=== PATIENT | female | born 1980 | race Caucasian/White ===

== ENCOUNTER → 2021-10-20 14:10 | Outpatient (CLI) | payer BC, SELFPAY ==
--- NOTE | ~2021-10-20 | XR_ITS ---
EXAM: XR knee LT 2V DATE: 10/20/2021 14:28 HISTORY: NO INJURY LEFT KNEE PAIN ALL OVER FOR 1 WEEK . COMPARISON: None available. FINDINGS: Normal mineralization. No fracture or dislocation. No lytic or blastic lesion. Mild medial joint space narrowing. Mild patellar osteophytosis. Subchondral lucency in the posterior patella. No erosion or periosteal change. Soft tissues within normal limits. Small left knee joint effusion. IMPRESSION: Mild osteoarthrosis of the knee. 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 Reviewed, dictated and finalized at location K.
== END ==
PROVIDERS: PCP Family Medicine Adolescent Medicine; Visit Provider Physician Assistant
DX: M17.12 Unilateral primary osteoarthritis, left knee (principal)
CPT/HCPCS: 73560

== ENCOUNTER → 2021-12-07 15:49 | Outpatient (CLI) | payer BC, SELFPAY ==
--- NOTE | ~2021-12-07 | MR_ITS ---
EXAMINATION: MR knee LT wo con DATE: 12/07/2021 16:50 INDICATION: Left knee pain TECHNIQUE: Magnetic resonance imaging (MRI) of the left knee was performed without intravenous contra st. Sequences included coronal PD-weighted FSE, coronal PD-weighted FS FSE, sagittal T2-weighted FSE , sagittal PD-weighted FS FSE and axial PD weighted fat saturated FSE. COMPARISON: None. FINDINGS: Medial compartment: Medial meniscus is normal. Articular cartilage is normal. Lateral compartment: Lateral meniscus is normal. Articular cartilage is normal. Patellofemoral compartment: Chondral ulceration and fissuring at the medial and lateral patellar facets as well as the apical rid ge where there is underlying cortical irregularity and edema and cystlike subarticular changes. Addit ional deep chondral fissure without degenerative subchondral changes at the inferior aspect of the me dial trochlea. Ligaments and tendons: Anterior and posterior cruciate ligaments are normal. The medial collateral ligament and fibular harriett ateral ligament complex are normal. The extensor mechanism is normal. The visualized medial and later al hamstring tendons as well as the iliotibial band are normal. Fluid: Physiologic amount of fluid in the joint space. No loose osteochondral bodies identified. Osseous/other: Normal marrow signal. No fracture or pathologic marrow replacing process. IMPRESSION: 1. 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 Reviewed, dictated and finalized at location A.
== END ==
PROVIDERS: PCP Family Medicine Adolescent Medicine; Visit Provider Orthopaedic Surgery
DX: M17.12 Unilateral primary osteoarthritis, left knee (principal)
CPT/HCPCS: 73721

== ENCOUNTER → 2022-06-21 13:22 | Outpatient (CLI) | payer BC, SELFPAY ==
--- NOTE | ~2022-06-21 | MR_ITS ---
MRI of the right shoulder Technique: Axial proton-density fat-sat images, coronal proton density fat-sat and T2 fat-sat images, and sagittal T1-weighted and T2 fat-sat images were acquired. Clinical History: Rotator cuff tear Findings: There is minimal subacromial spur, but otherwise no significant degenerative change at the AC joint. Coracoclavicular, coracoacromial, and coracohumeral ligaments are intact. Supraspinatus and infraspinatus tendons are intact, without partial or full-thickness tear. Subscapul robbie tendon is intact. Tendon of long head of the biceps is intact. Glenoid labrum is intact, without evidence of tear. Inferior glenohumeral ligament is intact. No degenerative change or significant effusion of the gleno humeral joint. No fluid distention of the subacromial/subdeltoid bursa. No muscle atrophy or edema id entified. Impression: No significant abnormality identified. No rotator cuff tear. Reviewed, dictated and finalized at [facility]. Impression: No significant abnormality identified. No rotator cuff tear.
== END ==
PROVIDERS: PCP Family Medicine Adolescent Medicine; Visit Provider Orthopaedic Surgery
DX: M75.101 Unspecified rotator cuff tear or rupture of right shoulder, not specified as traumatic (principal)
CPT/HCPCS: 73221

== ENCOUNTER 2023-01-11 01:27 | Day surgery (SDC) | payer BC, SELFPAY ==
[2023-01-02 11:45] VITALS: BMI 34.9
--- NOTE | 2023-01-02 11:53 | PC.NURSE ---
Report to the Outpatient Waiting Room, entrance under the green pavilion located off [facility], at time 0830 on date 01/11/23. Planned Procedure Time: 1030. Time changes happen often and if your time is changed the preop area will call you the afternoon before. - You and your visitor will be asked to self-screen and do not enter if you have any COVID symptoms. - A mask is optional within the hospital at this time. Patients may have clear liquids (water, carbonated beverages, clear teas, apple juice) until 3 hours prior to surgery with a maximum of 20 ounces. - No food from midnight until time of surgery Take the following medications with a SIP of water the morning of surgery: N/A DO NOT STOP ANY OF YOUR OTHER PRESCRIPTION MEDICATIONS PRIOR TO SURGERY ?EXCEPT THE FOLLOWING Medications to discontinue per physician: N/A Date to take last dose: N/A Please no make-up, nail indonesian, hairspray, perfume, deodorant, or body powder the day of surgery. No jewelry (including any body piercings) or valuables the day of surgery, leave them at home. Please take a shower or bath the night before, or the morning of, surgery with an antibacterial soap. Wear comfortable, loose fitting clothing. - Jewelry must be removed prior to entering the operating room. Rings and piercings that are not removed may be cut off. - The hospital will not accept responsibility for valuables. - Please leave all valuables, including medications, at home the day of surgery. If you are going home after surgery, a licensed wedding transportation driver must drive you home. - NO public transportation without another adult if you receive anesthesia. - We recommend that an adult stay with you for 24 hours following discharge. - We also recommend that you do not drive, make important decision, drink alcoholic beverages, or take any drugs that were not prescribed by your health care provider for at least 24 hours after your discharge time. Follow any additional instructions given to you from your surgeon. If you or anyone in your household have experienced Covid symptoms in the past week, please notify your surgeon or the nurse liaison at the phone number below for possible testing. Telephone instructions given to PT - GABRIELA VILLA and asked if any additional questions and then verbalized understanding. Patient advised to call surgeon office or pre surgery nurse liaison [phone] if any additional questions.
--- NOTE | 2023-01-10 15:57 | WPDANESEPPF ---
Anes - Initial Pre Proc Eval Procedure: Operation Date: 01/11/23 07:30 Proposed Procedures p Left Knee Arthroscopy, Possible Lateral Release, Proceed As Indicated - Hasmukh Guthrie MD Date/Time: 01/10/23 15:57 Surgeon: Hasmukh Guthrie MD Pre Op Diagnosis: left knee chondromylasia Patient Data Age: 42 Gender: F Height: 1.7 m Weight: 101 kg Allergies Allergy/AdvReac Type Severity Reaction Status Date / Time triazolam [From Halcion] AdvReac Other Verified 01/11/23 06:23 Home Medications Medication Instructions Recorded Confirmed Type No Home Medications 01/10/23 01/10/23 History Patient hx anesthesia problems: none Family hx anesthesia problems: none Results Review: All pre-operative results and documents have been reviewed as part of the pre-operative evaluation. [facility] Past Medical History Medical History Right knee pain Surgical History Surgical History H/O arthroscopic knee surgery Right 2012, Left 2013 History of surgical procedure on eye proper using laser OD only by Dr. Patel Hx of cataract surgery bilateral, [address] Mejía Hx of detached retina repair 2020 Lens replaced [address] Mejía Social History Social History Smoking status: Never smoker Second hand tobacco smoke exposure: No Alcohol intake: never Alcohol use details: 1-2 per month Substance use: never Substance use type: does not use Lack of Transportation: No Lack of Food: Never True Current Housing: I Have Housing Concerned About Future Housing: No Difficulty Paying Gas/Electric Bills: No Difficulty Paying for Meds: No Currently Unemployed: No Education: Bachelor's Degree Living arrangements: with family Occupation/Education: student Gender identity (if verbalized by the patient): Female Spiritual care concerns: No Agree to blood products: Yes Anes - Eval Final PreProcedure Day of Procedure 01/10/23 15:57 Patient weight: obese Heart: regular rate and rhythm Lungs: clear to auscultation Airway: Mallampati scale class II Neurological: alert and oriented Last oral intake: >/= 8 hours ASA classification: II Emergent: no Anesthetic plan: proceed Anesthesia type and monitoring: general LMA and standard monitoring Results Review: All pre-operative results and documents have been reviewed as part of the pre-operative evaluation. Informed Consent: The patient's anesthetic plan and its attendant risks and benefits were discussed with the patient/family/POA. Questions were solicited and answers provided to the satisfaction of the patient/family/POA.
[2023-01-11] VITALS (9 sets, daily range): BP systolic 117–149; BP diastolic 65–86; PULSE 63–96; RESP 14–16; TEMP 36.4–37.1; O2SAT 97–100
[2023-01-11] MEDS: CELECOXIB 200 MG CAPSULE PO (06:35)
[2023-01-11] MEDS: ACETAMINOPHEN 500 MG TABLET 1000 MG PO (06:35)
[2023-01-11] MEDS: LACTATED RINGERS 1,000 ML 30 ML IV CONT ×3 (06:55→11:20)
--- NOTE | 2023-01-11 07:13 | WPDHPUPDATE1 ---
History and Physical Update Update Date/Time: 01/11/23 07:13 History and Physical has been reviewed, including an updated exam of the patient. There are NO changes in the patient's condition. Risks, benefits, and alternatives have been discussed and questions answered. Patient agrees to proceed with procedure.
[2023-01-11] MEDS: ceFAZolin 2 GM/D5W 50 ML 2 GM/50 ML BAG IVPB (08:05)
[2023-01-11] MEDS: BUPivacaine HCL 0.5% 10 ML AMP 30 ML INFILTRATE (08:06)
--- NOTE | 2023-01-11 09:20 | W.PM.PROC2 ---
Procedure Note - Detailed Date of Procedure 01/11/23 Pre-op Diagnosis left knee chondromylasia Post-op Diagnosis Same Procedure Performed LEFT KNEE SCOPE WITH CHONDROPLASTY, MAJOR SYNOVECTOMY AND LATERAL RETINACULAR RELEASE Surgeon Hasmukh Guthrie MD Anesthesia General Description of Procedure PATIENT WAS TAKEN TO THE OR. LEFT LEG WAS PREPPED AND DRAPED STERILE. TROCARS WERE PLACED IN THE USUAL FASHION. CAMERA WAS INTRODUCED. THERE WAS SEVERE CHONDROMALACIA TO THE PATELLA FEMORAL JOINT. THERE WAS A LOT OF SYNOVITIS IN ALL COMPARTMENTS. THE MEDIAL COMPARTMENT SHOWED CHONDROMALACIA TO THE MEDIAL FEMORAL CONDYLE AND A LARGE CHONDRAL DEFECT. A SHAVER WAS USED TO PREFORM A CHONDROPLASTY. THERE WAS NO MEDIAL MENISCUS TEAR. THE ACL WAS INTACT. THE LATERAL MENISCUS WAS NOT TORN. THE LATERAL COMPARTMENT HAD MINIMAL CHONDROMALACIA. CHONDROPLASTY WAS PREFORMED. A SYNOVECTOMY WAS PREFORMED WELL. THE PATELLO FEMORAL JOINT UNDERWENT CHONDROPLASTY. THERE WAS GRADE 3 CHONDROMALACIA IN PART OF THE PATELLA. THERE WAS MINIMAL CHONDROMALACIA TO THE TROCHLEA. SYNOVECTOMY WAS PREFORMED IN THE SUPERIOR MEDIAL COMPARTMENT. NEXT A LATERAL RETINACULAR RELEASE WAS PREFORMED. THE BLEEDERS WERE CAUTERIZED. THE PATELLA TRACKED WELL IN THE GROOVE. THE WOUNDS WERE APPROXIMATED WITH 4.0 NYLON. STERILE DRESSING WAS APPLIED. PATIENT WAS EXTUBATED. Estimated Blood Loss 10 Complications No immediate complications Condition Stable Disposition PACU
[2023-01-11] MEDS: fentaNYL CITRATE INJ (*CRX) 100 MCG/2 ML VIAL 25 MCG IV PUSH ×4 (09:26→09:53)
[2023-01-11] MEDS: ONDANSETRON INJ 4 MG/2 ML VIAL IV PUSH (10:07)
[2023-01-11] MEDS: SCOPOLAMINE 1.5 MG PATCH TRANSDERM (11:19)
[2023-01-11] MEDS: diphenhydrAMINE HCl INJ 50 MG/ML VIAL 25 MG IV PUSH (11:19)
== END 2023-01-11 12:05 | disposition home or self-care (01) ==
PROVIDERS: PCP Family Medicine Adolescent Medicine; Visit Provider Orthopaedic Surgery
PROC: (CPT 29870; principal; 2023-01-11 07:30)
DX: M94.262 Chondromalacia, left knee (principal); M65.9 Synovitis and tenosynovitis, unspecified; E66.9 Obesity, unspecified; Z68.34 Body mass index [BMI] 34.0-34.9, adult; Z96.653 Presence of artificial knee joint, bilateral
CPT/HCPCS: 29876; 29873; A9270; J0690; J1100; J1200; J2250; J2405; J2704; J3010; J7120

== ENCOUNTER → 2023-02-28 13:31 | Outpatient (CLI) | payer BC, SELFPAY ==
--- NOTE | ~2023-02-28 | MR_ITS ---
MRI of the right knee Clinical history: Pain Technique: Coronal proton density and proton density-weighted images, sagittal proton-density and T2 fat-sat images, and axial proton-density fat-saturated images were acquired. Findings: Anterior and posterior cruciate ligaments are intact. Medial collateral ligament and the la teral collateral again conflux are intact. Popliteus tendon is intact. Medial and lateral menisci are intact, without evidence of tear. Articular cartilage is well preserved in the medial and lateral compartment. There is focal high-grad e chondral malacia at the lateral patellar facet. Femoral trochlear cartilage is intact. Extensor mechanism is intact. No significant joint effusion or Oconnor's cyst. Impression: Focal high-grade chondromalacia patella. No other significant findings. Reviewed, dictated and finalized at location . REPORTER Impression: Focal high-grade chondromalacia patella. No other significant findings.
== END ==
PROVIDERS: PCP Nurse Practitioner Family; Visit Provider Nurse Practitioner Family
DX: M22.41 Chondromalacia patellae, right knee (principal)
CPT/HCPCS: 73721

== ENCOUNTER 2023-03-15 01:51 | Day surgery (SDC) | payer BC, SELFPAY ==
[2023-03-09 10:28] VITALS: BMI 34.9
--- NOTE | 2023-03-09 10:29 | PC.NURSE ---
Report to the Outpatient Waiting Room, entrance under the green pavilion located off [facility], at time 0900 on date 03/15/23. Planned Procedure Time: 1100. Time changes happen often and if your time is changed the preop area will call you the afternoon before. - You and your visitor will be asked to self-screen and do not enter if you have any COVID symptoms. - A mask is optional within the hospital at this time. Patients may have clear liquids (water, carbonated beverages, clear teas, apple juice) until 3 hours prior to surgery with a maximum of 20 ounces. - No food from midnight until time of surgery Take the following medications with a SIP of water the morning of surgery: NONE DO NOT STOP ANY OF YOUR OTHER PRESCRIPTION MEDICATIONS PRIOR TO SURGERY ?EXCEPT THE FOLLOWING Medications to discontinue per physician: N/A Date to take last dose: N/A Please no make-up, nail irish, hairspray, perfume, deodorant, or body powder the day of surgery. No jewelry (including any body piercings) or valuables the day of surgery, leave them at home. Please take a shower or bath the night before, or the morning of, surgery with an antibacterial soap. Wear comfortable, loose fitting clothing. - Jewelry must be removed prior to entering the operating room. Rings and piercings that are not removed may be cut off. - The hospital will not accept responsibility for valuables. - Please leave all valuables, including medications, at home the day of surgery. If you are going home after surgery, a licensed hazardous materials tanker driver must drive you home. - NO public transportation without another adult if you receive anesthesia. - We recommend that an adult stay with you for 24 hours following discharge. - We also recommend that you do not drive, make important decision, drink alcoholic beverages, or take any drugs that were not prescribed by your health care provider for at least 24 hours after your discharge time. Follow any additional instructions given to you from your surgeon. If you or anyone in your household have experienced Covid symptoms in the past week, please notify your surgeon or the nurse liaison at the phone number below for possible testing. Telephone instructions given to ISAMAR Nixon and asked if any additional questions and then verbalized understanding. Patient advised to call surgeon office or pre surgery nurse liaison [phone] if any additional questions.
[2023-03-15] VITALS (9 sets, daily range): BP systolic 94–138; BP diastolic 53–86; PULSE 65–99; RESP 14–20; TEMP 36.6–36.9; O2SAT 96–100
--- NOTE | 2023-03-15 07:17 | WPDHPUPDATE1 ---
History and Physical Update Update Date/Time: 03/15/23 07:17 History and Physical has been reviewed, including an updated exam of the patient. There are NO changes in the patient's condition. Risks, benefits, and alternatives have been discussed and questions answered. Patient agrees to proceed with procedure.
--- NOTE | 2023-03-15 07:19 | WPDHPUPDATE1 ---
History and Physical Update Update Date/Time: 03/15/23 07:19 History and Physical has been reviewed, including an updated exam of the patient. There are NO changes in the patient's condition. Risks, benefits, and alternatives have been discussed and questions answered. Patient agrees to proceed with procedure.
[2023-03-15] MEDS: LACTATED RINGERS 1,000 ML 30 ML IV CONT ×2 (09:25→12:32)
[2023-03-15] MEDS: CELECOXIB 200 MG CAPSULE PO (09:25)
[2023-03-15] MEDS: ACETAMINOPHEN 500 MG TABLET 1000 MG PO (09:25)
--- NOTE | 2023-03-15 09:42 | WPDANESEPPF ---
Anes - Initial Pre Proc Eval Procedure: Operation Date: 03/15/23 11:00 Proposed Procedures p Right Knee Arthroscopy, Proceed As Indicated - Hasmukh Guthrie MD Date/Time: 03/15/23 09:42 Surgeon: Hasmukh Guthrie MD Pre Op Diagnosis: Right Knee Medial Meniscus tear Patient Data Age: 42 Gender: F Height: 1.7 m Weight: 101 kg Allergies Allergy/AdvReac Type Severity Reaction Status Date / Time triazolam [From Halcion] AdvReac Other Verified 03/09/23 10:28 Home Medications Medication Instructions Recorded Confirmed Type chlorhexidine gluconate 4 % 1 applic topical ONCE #237 mL 03/08/23 03/09/23 Rx topical liquid (Hibiclens) Patient hx anesthesia problems: none Family hx anesthesia problems: none Results Review: All pre-operative results and documents have been reviewed as part of the pre-operative evaluation. [facility]LY [facility] Past Medical History Medical History Chondromalacia of knee Impacted cerumen, bilateral Impingement of right shoulder Left knee pain ORLIN (obstructive sleep apnea) (2017) Right knee pain Surgical History Surgical History H/O arthroscopic knee surgery Right 2012, Left 2013, Left 01/05 History of surgical procedure on eye proper using laser OD only by Dr. Patel Hx of cataract surgery bilateral, [address] Mejía Hx of detached retina repair 2019 Lens replaced [address] Mejía Social History Social History Smoking status: Never smoker Second hand tobacco smoke exposure: No Alcohol intake: never Alcohol use details: 1-2 per month Substance use: never Substance use type: does not use Lack of Transportation: No Lack of Food: Never True Current Housing: I Have Housing Concerned About Future Housing: No Difficulty Paying Gas/Electric Bills: No Difficulty Paying for Meds: No Currently Unemployed: No Education: Bachelor's Degree Living arrangements: with family Occupation/Education: student Gender identity (if verbalized by the patient): Female Spiritual care concerns: No Agree to blood products: Yes Anes - Eval Final PreProcedure Day of Procedure 01/31/24 09:42 Patient weight: obese Heart: regular rate and rhythm Lungs: clear to auscultation Airway: Mallampati scale class III Neurological: alert and oriented Last oral intake: >/= 8 hours ASA classification: III Emergent: no Anesthetic plan: proceed Anesthesia type and monitoring: general LMA and standard monitoring Results Review: All pre-operative results and documents have been reviewed as part of the pre-operative evaluation. Informed Consent: The patient's anesthetic plan and its attendant risks and benefits were discussed with the patient/family/POA. Questions were solicited and answers provided to the satisfaction of the patient/family/POA.
[2023-03-15] MEDS: ceFAZolin 2 GM/D5W 50 ML 2 GM/50 ML BAG IVPB (11:14)
[2023-03-15] MEDS: BUPivacaine HCL 0.5% 10 ML AMP 30 ML INFILTRATE (11:49)
--- NOTE | 2023-03-15 12:30 | P.OP_ITS ---
Procedure Note - Detailed Date of Procedure 03/15/23 Pre-op Diagnosis Right Knee Patello Femoral Chondromalacia Post-op Diagnosis Same Procedure Performed RIGHT KNEE SCOPE WITH CHONDROPLASTY, MAJOR SYNOVECTOMY AND LATERAL RETINACULAR RELEASE Surgeon Hasmukh Guthrie MD Anesthesia General Description of Procedure PATIENT WAS TAKEN TO THE OR. THE RIGHT LEG WAS PREPPED AND DRAPED STERILE. TROCARS WERE PLACED IN THE USUAL FASHION. CAMERA WAS INTRODUCED. THERE WAS SEVERE CHONDROMALACIA TO THE PATELLA FEMORAL JOINT. THERE WAS A LOT OF SYNOVITIS IN ALL COMPARTMENTS. THE MEDIAL COMPARTMENT SHOWED MILD CHONDROMALACIA TO THE MEDIAL FEMORAL CONDYLE AND A SMALL CHONDRAL DEFECT. A SHAVER WAS USED TO PREFORM A CHONDROPLASTY. THERE WAS NO MEDIAL MENISCUS TEAR. THE ACL WAS INTACT. THE LATERAL MENISCUS WAS NOT TORN. THE LATERAL COMPARTMENT HAD NO CHONDROMALACIA. A SYNOVECTOMY WAS PREFORMED REMOVING IMPINGING TISSUE. THE PATELLO FEMORAL JOINT UNDERWENT CHONDROPLASTY. THERE WAS GRADE 3 CHONDROMALACIA IN PART OF THE PATELLA. THERE WAS MINIMAL CHONDROMALACIA TO THE TROCHLEA. SYNOVECTOMY WAS PREFORMED IN THE SUPERIOR MEDIAL COMPARTMENT. NEXT A LATERAL RETINACULAR RELEASE WAS PREFORMED. THE BLEEDERS WERE CAUTERIZED. THE PATELLA TRACKED WELL IN THE GROOVE. THE WOUNDS WERE APPROXIMATED WITH [address] ERILE DRESSING WAS APPLIED. PATIENT WAS EXTUBATED. Estimated Blood Loss 5 Complications No immediate complications Condition Stable Disposition PACU
[2023-03-15] MEDS: ONDANSETRON INJ 4 MG/2 ML VIAL IV PUSH (13:12)
[2023-03-15] MEDS: oxyCODONE HCL (*CRX) 5 MG TAB IR PO (13:51)
[2023-03-15] MEDS: diphenhydrAMINE HCl INJ 50 MG/ML VIAL 25 MG IV PUSH (14:19)
[2023-03-15] MEDS: SCOPOLAMINE 1 MG PATCH 1 PATCH TRANSDERM (14:19)
== END 2023-03-15 15:00 | disposition home or self-care (01) ==
PROVIDERS: PCP Family Medicine Adolescent Medicine; Visit Provider Orthopaedic Surgery
PROC: (CPT 29870; principal; 2023-03-15 11:00)
DX: M22.41 Chondromalacia patellae, right knee (principal); M65.861 Other synovitis and tenosynovitis, right lower leg; G47.33 Obstructive sleep apnea (adult) (pediatric); E66.9 Obesity, unspecified; Z68.35 Body mass index [BMI] 35.0-35.9, adult
CPT/HCPCS: 29873; 29876; A9270; J0690; J1100; J1170; J1200; J2250; J2405; J2704; J3010; J7120

== ENCOUNTER 2024-05-15 11:01 | Outpatient (CLI) | payer BC, SELFPAY ==
--- NOTE | ~2024-05-15 | US_ITS ---
EXAMINATION: US pelvic complete w TV INDICATION: Abnormal uterine bleeding Comparison:No prior studies for comparison. TECHNIQUE: Multiple transabdominal and endovaginal sonographic images of the pelvis performed. FINDINGS: The uterus measures 11.6 x 8.2 x 7.5 cm. There are multiple uterine fibroids measuring up t o 3.4 cm. There is an IUD in the endometrium. There are nabothian cysts. The endometrial complex chuck ures 7 mm. The right ovary measures 3.4 x 2.2 x 3.6 cm and the left ovary measures 3.2 x 3.3 x 2.1 cm. There ar e small follicles in each ovary. Normal doppler signal in both ovaries. There is no free fluid in the pelvis. There are no abnormal masses seen on either side. IMPRESSION: 1. Enlarged fibroid uterus. Fibroids are indistinct, although largest measures up to 3.4 cm. Reviewed, dictated and finalized at location A.
== END 2024-05-15 11:02 | disposition home or self-care (01) ==
PROVIDERS: PCP Family Medicine Adolescent Medicine
DX: D25.9 Leiomyoma of uterus, unspecified (principal)
CPT/HCPCS: 76830; 76856